=== PATIENT | female | born 1975 | race Caucasian/White ===

== ENCOUNTER → 2018-10-14 | Outpatient (CLI) | payer OTHER ==
[~2018-10-14] MED LIST: CALC1TAB59 PO; CYCL5TAB PO; METH4TAB2 PO; METH80VI IM; OMEP20CA9 PO; OXYC10TA47 PO; OXYC1TAB7 PO; POLY17PO5 PO; SENN-177 PO
[2018-10-14 13:41] LABS: BASOPHILS # (AUTO) 0.03 x10^3/uL (0-0.1); BASOPHILS % (AUTO) 1 % (0-1); EOSINOPHILS # (AUTO) 0.07 x10^3/uL (0-0.4); EOSINOPHILS % (AUTO) 1 % (1-7); LYMPHOCYTES # (AUTO) 1.77 x10^3/uL (1-3.4); LYMPHOCYTES % (AUTO) 32 % (22-44); MD NO; MEAN CORPUSCULAR HEMOGLOBIN 27.9 pg (27.0-34.8); MEAN CORPUSCULAR HGB CONC 33.4 g/dL (32.4-35.8); MEAN CORPUSCULAR VOLUME 83.6 fL (80-100); MEAN PLATELET VOLUME 7.9 fL (7.4-10.4); MONOCYTES # (AUTO) 0.52 x10^3/uL (0.2-0.8); MONOCYTES % (AUTO) 9 % (2-9); NEUTROPHILS # (AUTO) 3.22 x10^3/uL (1.8-6.8); NEUTROPHILS % (AUTO) 57 % (42-75); PLATELET COUNT 348 x10^3/uL (130-400); RED BLOOD COUNT 4.53 x10^6/uL (3.82-5.3); RED CELL DISTRIBUTION WIDTH 13.7 % (9.6-15.2)
[2018-10-14 13:49] LABS: ALANINE AMINOTRANSFERASE 27 U/L (12-78); ALBUMIN 3.9 g/dL (3.4-5.0); ANION GAP 4 mmol/L (5-15); CALCIUM 9.2 mg/dL (8.5-10.1); CHLORIDE 106 mmol/L (98-107); CREATININE 0.83 mg/dL (0.55-1.02)
[2018-10-14 13:51] LABS: ALKALINE PHOSPHATASE 70 U/L (45-117); BILIRUBIN,TOTAL 0.2 mg/dL (0.2-1.0); TOTAL PROTEIN 7.6 g/dL (6.4-8.2)
== END | disposition home or self-care (01) ==
LOC: LAB 13:14
PROVIDERS: ATTEND Family Medicine
DX: G35 Multiple sclerosis (principal)
CPT/HCPCS: 36415; 80053; 85025

== ENCOUNTER → 2018-12-10 | Outpatient (CLI) | payer OTHER ==
[~2018-12-10] MED LIST changes: +ASCO1TAB15 PO; +B CO1TAB14 PO; +BIFI1CAP PO; +CALC-160 PO; +CHOL400T5 PO; +ECHI125T PO; +GADOBUTROL 10 MMOL/10 ML PFS ONE; +GARL400T8 PO; +GINK120C PO; +GLUC500T11 PO; +IRON15TA3 PO; +LYSI500T PO; +OREG1500 PO; +PEDI200T PO; +RANI150T23 PO; +TURM1POW2 PO; +UBID30CA9 PO; +[UNRECOGNIZED DRUG - OTHER] PO; +black seed oil PO; +cbd oil PO
== END | disposition home or self-care (01) ==
LOC: CFH 14:25
PROVIDERS: ATTEND Family Medicine
DX: G93.9 Disorder of brain, unspecified (principal); D25.1 Intramural leiomyoma of uterus; M50.322 Other cervical disc degeneration at C5-C6 level; M48.02 Spinal stenosis, cervical region
CPT/HCPCS: 70553; 72141; 76830; A9585

== ENCOUNTER 2019-09-05 13:38 | Outpatient (CLI) | payer OTHER ==
[~2019-09-05 13:38] MED LIST changes: -GADOBUTROL 10 MMOL/10 ML PFS ONE; -LYSI500T PO; +LYSI500T8 PO; +PRED10TA PO; +RANI-467 PO; -RANI150T23 PO
== END 2019-09-05 23:59 | disposition home or self-care (01) ==
LOC: LAB 13:38
PROVIDERS: ATTEND Psychiatry & Neurology Neurology
DX: Z02.9 Encounter for administrative examinations, unspecified (principal)

== ENCOUNTER → 2019-10-23 | Outpatient (CLI) | payer OTHER ==
[2019-10-23 07:32] LABS: BASOPHILS # (AUTO) 0.04 x10^3/uL (0-0.1); BASOPHILS % (AUTO) 1 % (0-1); EOSINOPHILS # (AUTO) 0.21 x10^3/uL (0-0.4); EOSINOPHILS % (AUTO) 3 % (1-7); LYMPHOCYTES # (AUTO) 2.59 x10^3/uL (1-3.4); LYMPHOCYTES % (AUTO) 40 % (22-44); MD NO; MEAN CORPUSCULAR HEMOGLOBIN 23.9 pg (27.0-34.8); MEAN CORPUSCULAR HGB CONC 32.1 g/dL (32.4-35.8); MEAN CORPUSCULAR VOLUME 74.7 fL (80-100); MEAN PLATELET VOLUME 7.9 fL (7.4-10.4); MONOCYTES # (AUTO) 0.55 x10^3/uL (0.2-0.8); MONOCYTES % (AUTO) 8 % (2-9); NEUTROPHILS # (AUTO) 3.16 x10^3/uL (1.8-6.8); NEUTROPHILS % (AUTO) 48 % (42-75); PLATELET COUNT 349 x10^3/uL (130-400); RED BLOOD COUNT 4.86 x10^6/uL (3.82-5.3); RED CELL DISTRIBUTION WIDTH 16.7 % (9.6-15.2)
[2019-10-23 07:42] LABS: ALBUMIN 3.5 g/dL (3.4-5.0); ANION GAP 6 mmol/L (5-15); CALCIUM 8.9 mg/dL (8.5-10.1); CHLORIDE 108 mmol/L (98-107)
[2019-10-23 08:09] LABS: ALANINE AMINOTRANSFERASE 27 U/L (12-78); ALKALINE PHOSPHATASE 77 U/L (45-117); BILIRUBIN,TOTAL 0.2 mg/dL (0.2-1.0); CHOL/HDL RATIO 3.8; CHOLESTEROL, TOTAL 210 mg/dL (140-239); CREATININE 0.91 mg/dL (0.55-1.02); FOLATE LEVEL 19.6 ng/mL (3.1-17.5); HDL CHOL % 27 % (28-40); HDL CHOLESTEROL (DIRECT) 56 mg/dL (40-60); LDL CHOLESTEROL,CALCULATED 118 mg/dL (54-169); LDL/HDL RATIO 2.1 (0.5-3.0); TOTAL PROTEIN 7.7 g/dL (6.4-8.2); TRIGLYCERIDES 179 mg/dL (50-200); VLDL CHOLESTEROL 36 mg/dL (0-25)
== END | disposition home or self-care (01) ==
LOC: LAB 07:10
PROVIDERS: ATTEND Nurse Practitioner
DX: G35 Multiple sclerosis (principal); M54.81 Occipital neuralgia
CPT/HCPCS: 36415; 80053; 80061; 82306; 82607; 82746; 84443; 85025

== ENCOUNTER 2019-11-28 17:00 | Emergency (ER) | payer OTHER ==
[~2019-11-28] VITALS: Ht 167.6 cm; Wt 90.4 kg
--- NOTE | 2019-11-28 17:45 | NUR ---
patient arrives to hospital with a fever today that was roughly 100.8, and she is 125 on monitor, didn't take anything for fever. she has a history of MS. she had an infusion november 21 for it, and gets it every six weeks. patient also reports abdominal pain that began today, cramping and nausea. 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 patient has no cough, no sob.
[2019-11-28] MEDS ORDERED: NATA300V2 IVF (17:53)
[2019-11-28] MEDS ORDERED: SODIUM CHLORIDE 0.9% 1,000ML IVBOLUS ONE (18:30)
--- NOTE | 2019-11-28 18:49 | NUR ---
sent urine. isolation
[2019-11-28 19:09] LABS: BASOPHILS # (AUTO) 0.06 x10^3/uL (0-0.1); BASOPHILS % (AUTO) 1 % (0-1); EOSINOPHILS # (AUTO) 0.04 x10^3/uL (0-0.4); EOSINOPHILS % (AUTO) 1 % (1-7); LYMPHOCYTES # (AUTO) 1.62 x10^3/uL (1-3.4); LYMPHOCYTES % (AUTO) 18 % (22-44); MD NO; MEAN CORPUSCULAR HEMOGLOBIN 25.5 pg (27.0-34.8); MEAN CORPUSCULAR HGB CONC 32.3 g/dL (32.4-35.8); MEAN CORPUSCULAR VOLUME 78.8 fL (80-100); MEAN PLATELET VOLUME 9.3 fL (7.4-10.4); MONOCYTES # (AUTO) 0.81 x10^3/uL (0.2-0.8); MONOCYTES % (AUTO) 9 % (2-9); NEUTROPHILS % (AUTO) 71 % (42-75); PLATELET COUNT 327 x10^3/uL (130-400); RED BLOOD COUNT 4.81 x10^6/uL (3.82-5.3); RED CELL DISTRIBUTION WIDTH 20.1 % (9.6-15.2)
[2019-11-28 19:11] LABS: MICROSCOPIC AUTO
[2019-11-28 19:17] LABS: ALBUMIN 3.9 g/dL (3.4-5.0); ANION GAP 10 mmol/L (5-15); CALCIUM 9.3 mg/dL (8.5-10.1); CHLORIDE 106 mmol/L (98-107)
[2019-11-28 19:25] LABS: ALANINE AMINOTRANSFERASE 33 U/L (12-78); ALKALINE PHOSPHATASE 90 U/L (45-117); BILIRUBIN,TOTAL 0.5 mg/dL (0.2-1.0); CREATININE 1.03 mg/dL (0.55-1.02); TOTAL PROTEIN 8.3 g/dL (6.4-8.2); TROPONIN I < 0.015 ng/mL (0.000-0.045)
--- NOTE | 2019-11-28 20:19 | NUR ---
LUNCH BREAK NOTE: DR. APPLE AT BEDSIDE FOR RECHECK.
[2019-11-28] MEDS ORDERED: CEFTRIAXONE PMX 1GM/50ML 50 ML IV ONE (20:30)
[2019-11-28] MEDS ORDERED: CEFTRIAXONE PMX 1GM/50ML 50 ML ONE (20:47)
[2019-11-28 21:00] VITALS: BP 144/78
== END 2019-11-28 21:15 | disposition home or self-care (01) ==
LOC: ED 21:10
DX: N30.00 Acute cystitis without hematuria (principal); R00.0 Tachycardia, unspecified; R50.9 Fever, unspecified; Z20.828 Contact with and (suspected) exposure to other viral communicable diseases
CPT/HCPCS: 36415; 71045; 80053; 81001; 83605; 84145; 84484; 85025; 87040; 87077; 87086; 87186; 96365; 99284; J0696; J7030; U0001

== ENCOUNTER → 2019-12-23 | Outpatient (CLI) | payer OTHER ==
[~2019-12-23] MED LIST changes: +NATA300V2 IVF
== END | disposition home or self-care (01) ==
LOC: CFH 15:35
PROVIDERS: ATTEND Nurse Practitioner
DX: Z12.31 Encounter for screening mammogram for malignant neoplasm of breast (principal)
CPT/HCPCS: 77067

== ENCOUNTER → 2020-01-06 | Outpatient (CLI) | payer OTHER ==
[~2020-01-06] MED LIST changes: +OMNIPAQUE 350 MG/ML, 100ML BOTTLE ONE
== END | disposition home or self-care (01) ==
LOC: CFH 14:09
PROVIDERS: ATTEND Nurse Practitioner
DX: R13.19 Other dysphagia (principal); R93.89 Abnormal findings on diagnostic imaging of other specified body structures
CPT/HCPCS: 71260; Q9967

== ENCOUNTER 2020-06-14 12:32 | Inpatient (IN) | payer OTHER ==
[~2020-06-14] VITALS: Ht 167.6 cm; Wt 98.9 kg
[~2020-06-14 12:32] MED LIST changes: -OMNIPAQUE 350 MG/ML, 100ML BOTTLE ONE
--- NOTE | 2020-06-14 12:53 | NUR ---
SUDDEN ONSET N/V/D WITH ACCOMPANYING ABDOMINAL PAIN
[2020-06-14 13:22] LABS: MEAN CORPUSCULAR HEMOGLOBIN 28.5 pg (27.0-34.8); MEAN CORPUSCULAR HGB CONC 33.6 g/dL (32.4-35.8); MEAN PLATELET VOLUME 7.7 fL (7.4-10.4); PLATELET COUNT 207 x10^3/uL (130-400); RED BLOOD COUNT 4.65 x10^6/uL (3.82-5.3); RED CELL DISTRIBUTION WIDTH 14.8 % (9.6-15.2)
[2020-06-14] MEDS ORDERED: ONDANSETRON 2MG/ML, 2ML ONE ×2 (13:25→22:10)
[2020-06-14 13:26] LABS: ALANINE AMINOTRANSFERASE 28 U/L (12-78); ALBUMIN 3.8 g/dL (3.4-5.0); ANION GAP 5 mmol/L (5-15); CHLORIDE 109 mmol/L (98-107); CREATININE 1.14 mg/dL (0.55-1.02)
[2020-06-14 13:28] LABS: ALKALINE PHOSPHATASE 83 U/L (45-117); BILIRUBIN,TOTAL 0.4 mg/dL (0.2-1.0); TOTAL PROTEIN 7.4 g/dL (6.4-8.2)
[2020-06-14] MEDS ORDERED: SODIUM CHLORIDE FLUSH 10ML SYR IVF ONE (13:30)
[2020-06-14] MEDS ORDERED: SODIUM CHLORIDE 0.9% 1,000ML IVBOLUS ONE ×3 (13:30→18:30)
[2020-06-14] MEDS ORDERED: ONDANSETRON 2MG/ML, 2ML IVPush ONE (13:30)
--- NOTE | 2020-06-14 13:30 | NUR ---
medicated for nausea. ambulated to bathroom to give urine sample and to start iv bolus and medicate for pain on return
[2020-06-14] MEDS ORDERED: MORPHINE SULFATE 4 MG/ML, 1ML ONE ×2 (13:47→14:45)
[2020-06-14] MEDS: MORPHINE SULFATE 4 MG/ML, 1ML IVPush PRN ×2 (13:49→14:46)
[2020-06-14 13:52] LABS: MD YES
--- NOTE | 2020-06-14 13:53 | NUR ---
MEDICATED FOR PAIN. URINE SENT. AWAITING CT.
[2020-06-14 13:57] LABS: BAND#(MANUAL) 0.24 x10^3/uL; BANDS%(MANUAL) 14 % (0-7); SEG#(MANUAL) 0.65 x10^3/uL (1.8-6.8); SEGS% (MANUAL) 38 % (42-75)
[2020-06-14 13:58] LABS: <PLATELET ESTIMATE> ADEQUATE; <PLT MORPHOLOGY> NORMAL PLT MORPH; <RBC MORPHOLOGY> NORMAL; LYMPH#(MANUAL) 0.78 x10^3/uL (1-3.4); LYMPHS% (MANUAL) 46 % (22-44); METAMYELOCYTES# (MANUAL) 0.02 x10^3/uL (0-0); METAMYELOCYTES% (MANUAL) 1 % (0-1); REACTIVE LYMPHS # (MANUAL) 0.02 x10^3/uL (0-0); REACTIVE LYMPHS % (MANUAL) 1 % (0-0)
[2020-06-14 14:26] LABS: HCG UR SG 1.014 (1.003-1.030); MICROSCOPIC AUTO
--- NOTE | 2020-06-14 14:44 | NUR ---
PAIN 5/10 WITH IMPROVEMENT IN NAUSEA. AWAITING CT
[2020-06-14] MEDS ORDERED: OMNIPAQUE 350 MG/ML, 100ML BOTTLE ONE (15:14)
[2020-06-14] MEDS ORDERED: CEFTRIAXONE PMX 1GM/50ML 50 ML IV ONE (16:00)
--- NOTE | 2020-06-14 16:07 | NUR ---
AFTER BLOOD CULTURES AND LACTIC ACID DRAWN, STRAIGHT CATH URINE OBTAINED AND BROUGHT TO LAB
--- NOTE | 2020-06-14 16:22 | NUR ---
CEFTRIAXONE REQUESTED FROM PHARMACY
[2020-06-14 16:27] LABS: MICROSCOPIC INDICATED
--- NOTE | 2020-06-14 16:37 | NUR ---
PT HAS NO PAIN AT THIS TIME. AWARE OF PROCALCITONIN. CONTINUE TO AWAIT ROCEPHIN FROM PHARMACY.
[2020-06-14] MEDS ORDERED: ACETAMINOPHEN 500 MG TABLET PO ONE (18:30)
[2020-06-14] MEDS ORDERED: ACETAMINOPHEN 500 MG TABLET ONE (19:12)
[2020-06-14] MEDS ORDERED: ONDANSETRON ODT 4 MG PO PRN (19:30)
[2020-06-14] MEDS ORDERED: DOCUSATE 100 MG CAPSULE PO PRN (19:30)
[2020-06-14] MEDS ORDERED: MELATONIN 5 MG TABLET PO PRN (19:30)
[2020-06-14] MEDS ORDERED: ACETAMINOPHEN 325 MG TABLET PO PRN (19:30)
[2020-06-14] MEDS: SODIUM CHLORIDE 0.9% 1,000 ML IV SCH (19:30)
--- NOTE | 2020-06-14 19:59 | NUR ---
PT UNERSTANDING OF POC, MED REC UPDATED, PT STATES FEELING BETTER, FLUIDS RUNNING AT THIS TIME. CALL LIGHT WITHIN REACH
--- NOTE | 2020-06-14 20:50 | NUR ---
REPORT GIVEN TO OR NURSE. PT TO GO TO OR THEN THE FLOOR
--- NOTE | 2020-06-14 21:05 | NUR ---
3RD LITER STOPPED AT 2105. BP TAKEN AND IS IN CHART
[2020-06-14] MEDS ORDERED: FENTANYL PF 250 MCG/5ML ONE (22:09)
[2020-06-14] MEDS ORDERED: MIDAZOLAM 1 MG/ML, 2ML ONE (22:09)
[2020-06-14] MEDS ORDERED: DEXAMETHASONE 4 MG/ML, 1ML ONE (22:10)
[2020-06-14] MEDS ORDERED: CEFAZOLIN 1,000 MG ONE (22:10)
[2020-06-14] MEDS ORDERED: PROPOFOL 10 MG/ML, 20ML ONE (22:10)
[2020-06-14] MEDS ORDERED: HYDROmorphone 1 MG/ML, 1ML INJ IVPush PRN (22:30)
[2020-06-14] MEDS ORDERED: FENTANYL PF 100 MCG/2ML IV PRN (22:30)
[2020-06-14] MEDS ORDERED: OXYcodone 5 MG/5 ML ORAL.SOL UDC PO PRN (22:30)
[2020-06-14] MEDS ORDERED: MEPERIDINE/PF 25MG/0.5ML IVPush PRN (22:30)
[2020-06-14] MEDS ORDERED: hydrALAzine 20 MG/ML, 1ML IV PRN (22:30)
[2020-06-14] MEDS ORDERED: PROMETHAZINE 25 MG/ML, 1ML IVPush PRN (22:30)
[2020-06-14] MEDS ORDERED: morphine SULFATE 10 MG/ML, 1ML IVPush PRN (22:30)
[2020-06-14] MEDS ORDERED: LABETALOL 5MG/ML, 20ML IV PRN (22:30)
[2020-06-14] MEDS ORDERED: HALOPERIDOL 5 MG/ML IV PRN (22:30)
[2020-06-15] MEDS: SODIUM CHLORIDE 0.9% 1,000 ML IV SCH (03:30)
[2020-06-15 03:45] VITALS: BP 102/69
[2020-06-15] MEDS ORDERED: CEFTRIAXONE PMX 1GM/50ML 50 ML IV SCH (04:30)
[2020-06-15 05:25] LABS: MEAN CORPUSCULAR HEMOGLOBIN 28.5 pg (27.0-34.8); MEAN CORPUSCULAR HGB CONC 33.3 g/dL (32.4-35.8); PLATELET COUNT 196 x10^3/uL (130-400); RED BLOOD COUNT 3.84 x10^6/uL (3.82-5.3); RED CELL DISTRIBUTION WIDTH 15.1 % (9.6-15.2)
[2020-06-15 05:36] LABS: ANION GAP 5 mmol/L (5-15); CALCIUM 8.1 mg/dL (8.5-10.1); CHLORIDE 114 mmol/L (98-107); CREATININE 0.96 mg/dL (0.55-1.02)
[2020-06-15 06:32] LABS: MD YES
[2020-06-15 06:34] LABS: <PLATELET ESTIMATE> ADEQUATE; <PLT MORPHOLOGY> NORMAL PLT MORPH; <RBC MORPHOLOGY> NORMAL; BAND#(MANUAL) 4.29 x10^3/uL; BANDS%(MANUAL) 22 % (0-7); LYMPH#(MANUAL) 1.37 x10^3/uL (1-3.4); LYMPHS% (MANUAL) 7 % (22-44); MONOS% (MANUAL) 1 % (2-9); SEG#(MANUAL) 13.65 x10^3/uL (1.8-6.8); SEGS% (MANUAL) 70 % (42-75)
[2020-06-15 07:46] VITALS: BP 110/67
[2020-06-15] MEDS ORDERED: CEFD300C37 PO (11:10)
[2020-06-15] MEDS ORDERED: HYDR-3240 PO (12:20)
[2020-06-15 12:29] VITALS: BP 122/68
== END 2020-06-15 13:13 | disposition home or self-care (01) | DRG 853 ==
LOC: ED 13:29 → EDIP 18:04 → 4NE 23:43 → DCLOUNGE 06-15 13:05
PROVIDERS: ADMIT Family Medicine; ATTEND Hospitalist
PROC: 0T9B30Z Drainage of Bladder with Drainage Device, Percutaneous Approach (ICD-10-PCS; 2020-06-14)
PROC: 0T768DZ Dilation of Right Ureter with Intraluminal Device, Via Natural or Artificial Opening Endoscopic (ICD-10-PCS; principal; 2020-06-14 23:00)
DX: A41.9 Sepsis, unspecified organism (principal); N17.0 Acute kidney failure with tubular necrosis; D84.9 Immunodeficiency, unspecified; N13.6 Pyonephrosis; Z20.828 Contact with and (suspected) exposure to other viral communicable diseases; D70.9 Neutropenia, unspecified; G35 Multiple sclerosis; R56.9 Unspecified convulsions; Z82.3 Family history of stroke; Z82.49 Family history of ischemic heart disease and other diseases of the circulatory system; Z87.11 Personal history of peptic ulcer disease; Z87.442 Personal history of urinary calculi; Z98.891 History of uterine scar from previous surgery; Z79.899 Other long term (current) drug therapy; Z79.01 Long term (current) use of anticoagulants
CPT/HCPCS: 36415; 74018; 74177; 76000; 80048; 80053; 81001; 81025; 83605; 84145; 85025; 87040; 87077; 87086; 87635; 93005; G0378; J0690; J0696; J1100; J2250; J2405; J2704; J3010; Q9967; C2617; J2270; J7030

== ENCOUNTER → 2020-07-06 | Outpatient (CLI) | payer OTHER ==
[~2020-07-06] MED LIST changes: +CEFD300C37 PO; +HYDR-3240 PO
== END | disposition home or self-care (01) ==
LOC: STAR 15:23
PROVIDERS: ATTEND Urology
DX: Z20.828 Contact with and (suspected) exposure to other viral communicable diseases (principal); N20.0 Calculus of kidney
CPT/HCPCS: 87635

== ENCOUNTER 2020-07-12 05:42 | Day surgery (SDC) | payer OTHER ==
[~2020-07-12] VITALS: Ht 167.6 cm; Wt 92.0 kg
[~2020-07-12 05:42] MED LIST changes: +HYDR-1067 PO; -HYDR-3240 PO
[2020-07-12] MEDS ORDERED: CHLORHEXIDINE 15 ML UDC MM STA (06:03)
[2020-07-12] MEDS ORDERED: CHLORHEXIDINE 15 ML UDC ONE (06:08)
[2020-07-12 06:18] VITALS: BP 134/92
[2020-07-12] MEDS ORDERED: LACTATED RINGERS 1,000 ML IV SCH (06:30)
[2020-07-12 06:37] LABS: HCG UR SG 1.017 (1.003-1.030)
[2020-07-12] MEDS ORDERED: FENTANYL PF 100 MCG/2ML ONE ×2 (06:56→09:11)
[2020-07-12] MEDS ORDERED: MIDAZOLAM 1 MG/ML, 2ML ONE (06:56)
[2020-07-12] MEDS ORDERED: PROPOFOL 10 MG/ML, 20ML ONE (07:35)
[2020-07-12] MEDS ORDERED: ONDANSETRON 2MG/ML, 2ML ONE (07:35)
[2020-07-12] MEDS ORDERED: CEFAZOLIN 1,000 MG ONE (07:35)
[2020-07-12] MEDS ORDERED: PHENYLEPHRINE 10 MG/ML ONE (07:35)
[2020-07-12] MEDS ORDERED: DEXAMETHASONE 4 MG/ML, 1ML ONE (07:35)
[2020-07-12] MEDS ORDERED: EPHEDRINE 50 MG/ML, 1ML IVPush PRN (08:00)
[2020-07-12] MEDS ORDERED: METOPROLOL 1 MG/ML, 5ML IV PRN (08:00)
[2020-07-12] MEDS ORDERED: LABETALOL 5MG/ML, 20ML IV PRN (08:00)
[2020-07-12] MEDS ORDERED: DIAZEPAM 5 MG/ML, 2ML IVPush PRN (08:00)
[2020-07-12] MEDS ORDERED: HALOPERIDOL 5 MG/ML IV PRN (08:00)
[2020-07-12] MEDS ORDERED: hydrALAzine 20 MG/ML, 1ML IV PRN (08:00)
[2020-07-12] MEDS ORDERED: OXYcodone 5 MG/5 ML ORAL.SOL UDC PO PRN (08:00)
[2020-07-12] MEDS ORDERED: HYDROmorphone 1 MG/ML, 1ML INJ IVPush PRN (08:00)
[2020-07-12] MEDS ORDERED: METOCLOPRAMIDE 5 MG/ML, 2ML IVPush PRN (08:00)
[2020-07-12] MEDS ORDERED: PROMETHAZINE 12.5 MG SUPP PR PRN (08:00)
[2020-07-12] MEDS ORDERED: ACETAMINOPHEN 325 MG TABLET PO PRN (08:00)
[2020-07-12] MEDS ORDERED: FENTANYL PF 100 MCG/2ML IV PRN (08:00)
[2020-07-12] MEDS ORDERED: ONDANSETRON 2MG/ML, 2ML IVPush PRN (08:00)
[2020-07-12] MEDS ORDERED: ACETAMINOPHEN 650 MG/20.3 ML UDC ONE (09:11)
== END 2020-07-12 11:45 | disposition home or self-care (01) ==
LOC: OUT 05:42
PROVIDERS: ATTEND Urology
DX: N20.1 Calculus of ureter (principal); G35 Multiple sclerosis; E66.9 Obesity, unspecified; Z79.899 Other long term (current) drug therapy
CPT/HCPCS: 52356; 74018; 81025; 82360; C1769; C2617; J0690; J1100; J2250; J2370; J2405; J2704; J3010; J7120; 76000

== ENCOUNTER → 2020-09-17 | Outpatient (CLI) | payer OTHER ==
[~2020-09-17] MED LIST changes: +GARL400T12 PO; -GARL400T8 PO
[2020-09-17 10:22] LABS: BASOPHILS % (AUTO) 1 % (0-1); EOSINOPHILS % (AUTO) 2 % (1-7); LYMPHOCYTES % (AUTO) 40 % (22-44); MEAN CORPUSCULAR HEMOGLOBIN 28.9 pg (27.0-34.8); MEAN CORPUSCULAR HGB CONC 33.9 g/dL (32.4-35.8); MEAN PLATELET VOLUME 7.7 fL (7.4-10.4); MONOCYTES % (AUTO) 10 % (2-9); NEUTROPHILS % (AUTO) 47 % (42-75); PLATELET COUNT 326 x10^3/uL (130-400); RED BLOOD COUNT 4.76 x10^6/uL (3.82-5.3); RED CELL DISTRIBUTION WIDTH 14.1 % (9.6-15.2)
[2020-09-17 10:37] LABS: MD NO
== END | disposition home or self-care (01) ==
LOC: LAB 09:52
PROVIDERS: ATTEND Psychiatry & Neurology Neurology
DX: Z51.81 Encounter for therapeutic drug level monitoring (principal)
CPT/HCPCS: 36415; 85025